=== PATIENT | female | born 1950 | race Caucasian/White ===

== ENCOUNTER 2018-03-31 18:11 | Emergency (ER) | payer MEDICARE ==
[~2018-03-31 18:11] MED LIST: HYDR12.561 PO; LISI20TA29 PO; MECL25TA9 PO; OLME40TA28 PO; ONDA-2 PO; ONDA4TAB97 PO; PROP60TA15 PO
[2018-03-31] MEDS ORDERED: LISI-374 PO (18:19)
[2018-03-31] MEDS ORDERED: POTA20TA94 PO (18:19)
[2018-03-31] MEDS ORDERED: AMLO-99 PO (18:19)
--- NOTE | 2018-03-31 18:38 | ER Report ---
History and Physical Time Seen By MD: 18:25 Hx. of Stated Complaint: pt having ruq abd pain that started abruptly 20-3- mins ago, no radiating factors, rates pain at 4-8/10, has hx of pancreatitis and states symptoms are similar to that HPI/ROS Chief Complaint: "Pancreatitis" HPI: 67-year-old patient presents with complaints of right upper quadrant pain that she attributes to her previously diagnosed pancreatitis. She states she has been managing the pancreatitis with dietary modifications. She reports having similar pain three to four times in the past and associates each episode with making poor dietary choices. She reports, if she drinks lots of water she can typically avoid progression of pain. She states the pain is currently improving. ROS: General: no fevers, chills, or night sweats HEENT: denies headache, denies sinus pressure Respiratory: denies shortness of breath, denies difficulty breathing CV: denies chest pain GI: reports right upper quadrant pain, reports epigastric pain, denies GERD, denies nausea and vomiting Allergies: Coded Allergies: aspirin (Verified Allergy, Severe, ANAPHYLAXIS , 03/31/18) NSAIDS (Non-Steroidal Anti-Inflamma (Unverified Allergy, Intermediate, SWELLING, 03/31/18) Sulfa (Sulfonamide Antibiotics) (Unverified Allergy, Unknown, 03/31/18) Home Meds Active Scripts Hydrochlorothiazide (HYDROCHLOROTHIAZIDE) 12.5 Mg Tablet, 1 TAB PO QDAY, #30 TAB 0 Refills TAKE ONE TABLET BY MOUTH EVERY DAY Prov:EMILIO GUTIÉRREZ MD 06/16/14 Reported Medications Potassium Chloride (POTASSIUM CHLORIDE) 20 Meq Tab.er.prt, 20 MEQ PO QDAY 03/31/18 Amlodipine Besylate (AMLODIPINE BESYLATE) 10 Mg Tablet, 1 TAB PO QDAY, TAB 03/31/18 Lisinopril (LISINOPRIL) 40 Mg Tablet, 40 MG PO QDAY, TAB 03/31/18 Discontinued Reported Medications Olmesartan Medoxomil (BENICAR) 40 Mg Tablet, 40 MG PO DAILY 06/16/14 Propranolol Hcl (PROPRANOLOL HCL) 60 Mg Tablet, 60 MG PO BID 06/16/14 Discontinued Scripts Ondansetron Hcl (ZOFRAN) 4 Mg Tablet, 4 MG PO Q6H Y for NAUSEA/VOMITING, #12 Prov:RAHUL WALTON DO 03/15/17 Ondansetron Hcl (ONDANSETRON HCL) 4 Mg Tablet, 4 MG PO Q8-12H for Nausea, #10 TAB TAKE 1 TABLET BY MOUTH EVERY 8-12 HOURS Prov:MATI GAYLE MD 05/26/14 Meclizine Hcl (MECLIZINE HCL) 25 Mg Tablet, 25 MG PO TID for dizziness, #30 Prov:MATI GAYLE MD 05/26/14 Lisinopril (LISINOPRIL) 20 Mg Tablet, 20 MG PO QDAY, #30 Prov:MATI GAYLE MD 05/26/14 Past Medical/Surgical History Pancreatitis 1 year ago Appendix 11 years ago Tubal ligation 25 years ago Toot fracture in 3rd grade Cataract surgery 3 years ago Hx Smoking: No Smoking Status: Never Smoker Hx Alcohol Use: No Constitutional Vital Sign - Last 24 Hours 03/31/18 03/31/18 03/31/18 03/31/18 18:11 18:15 18:19 18:26 Temp 97.7 Pulse ??? 79 77 Resp 20 B/P (MAP) 161/80 (107) 161/80 Pulse Ox 98 99 03/31/18 03/31/18 03/31/18 03/31/18 18:30 18:41 18:45 18:56 Pulse 80 77 B/P (MAP) 145/70 (95) 138/76 (96) Pulse Ox 96 96 03/31/18 03/31/18 03/31/18 03/31/18 19:00 19:11 19:15 19:20 Pulse 76 76 B/P (MAP) 148/81 (103) 151/84 (106) Pulse Ox 97 97 03/31/18 03/31/18 03/31/18 03/31/18 19:30 19:35 19:45 19:50 Pulse 77 74 B/P (MAP) 147/72 (97) 149/82 (104) Pulse Ox 97 97 03/31/18 03/31/18 20:00 20:05 Pulse 77 B/P (MAP) 148/79 (102) Pulse Ox 94 Physical Exam Physical Examination: General: 67-year-old woman in no apparent distress Neuro: cranial nerves grossly intact HEENT: normocephalic, atraumatic, TMs hema aleman BL with no effusion, mucus membranes pink and moist, no rhinorrhea Respiratory: CTA BL CV: Clear S1 S2, no murmurs GI: normoactive BS x4, right upper gastric pain on palpation, Differential Diagnoses considered: pancreatitis, cholecystitis, bile duct obstruction, GERD Medical Decision Making Data Points Result Diagram: 03/31/18 1824 03/31/18 1824 Laboratory Hematology Test 03/31/18 18:24 Red Blood Count 4.62 M/uL (4.17-5.56) Mean Corpuscular Volume 85.6 fL (80.0-96.0) Mean Corpuscular Hemoglobin 30.6 pg (26.0-33.0) Mean Corpuscular Hemoglobin Concent 35.8 g/dL (32.0-36.0) Red Cell Distribution Width 13.1 % (11.5-14.5) Mean Platelet Volume 8.1 fL (7.2-11.1) Neutrophils (%) (Auto) 43.0 % (39.4-72.5) Lymphocytes (%) (Auto) 44.4 % (17.6-49.6) Monocytes (%) (Auto) 8.8 % (4.1-12.4) Eosinophils (%) (Auto) 3.2 % (0.4-6.7) Basophils (%) (Auto) 0.6 % (0.3-1.4) Nucleated RBC Relative Count (auto) 0.1 /100WBC Neutrophils # (Auto) 4.5 K/uL (2.0-7.4) Lymphocytes # (Auto) 4.6 K/uL (1.3-3.6) Monocytes # (Auto) 0.9 K/uL (0.3-1.0) Eosinophils # (Auto) 0.3 K/uL (0.0-0.5) Basophils # (Auto) 0.1 K/uL (0.0-0.1) Nucleated RBC Absolute Count (auto) 0.01 K/uL Sodium Level 139 mmol/L (137-145) Potassium Level 3.7 mmol/L (3.5-5.0) Chloride Level 103 mmol/L (98-107) Carbon Dioxide Level 22 mmol/L (22-31) Blood Urea Nitrogen 28 mg/dl (7-18) Creatinine 1.10 mg/dl (0.52-1.04) Glomerular Filtration Rate Calc 49.5 Random Glucose 136 mg/dl (75-110) Calcium Level 10.3 mg/dl (8.4-10.2) Total Bilirubin 0.5 mg/dl (0.2-1.3) Aspartate Amino Transf (AST/SGOT) 155 U/L (0-35) Alanine Aminotransferase (ALT/SGPT) 85 U/L (0-56) Alkaline Phosphatase 111 U/L (0-126) Total Protein 7.7 gm/dl (6.3-8.2) Albumin 4.4 g/dl (3.5-5.0) Amylase Level 281 U/L (0-110) Lipase 4040 U/L (23-300) Chemistry Test 03/31/18 18:24 White Blood Count 10.4 k/uL (4.5-11.0) Red Blood Count 4.62 M/uL (4.17-5.56) Hemoglobin 14.1 g/dL (12.0-16.0) Hematocrit 39.5 % (34.0-47.0) Mean Corpuscular Volume 85.6 fL (80.0-96.0) Mean Corpuscular Hemoglobin 30.6 pg (26.0-33.0) Mean Corpuscular Hemoglobin Concent 35.8 g/dL (32.0-36.0) Red Cell Distribution Width 13.1 % (11.5-14.5) Platelet Count 357 K/uL (150-450) Mean Platelet Volume 8.1 fL (7.2-11.1) Neutrophils (%) (Auto) 43.0 % (39.4-72.5) Lymphocytes (%) (Auto) 44.4 % (17.6-49.6) Monocytes (%) (Auto) 8.8 % (4.1-12.4) Eosinophils (%) (Auto) 3.2 % (0.4-6.7) Basophils (%) (Auto) 0.6 % (0.3-1.4) Nucleated RBC Relative Count (auto) 0.1 /100WBC Neutrophils # (Auto) 4.5 K/uL (2.0-7.4) Lymphocytes # (Auto) 4.6 K/uL (1.3-3.6) Monocytes # (Auto) 0.9 K/uL (0.3-1.0) Eosinophils # (Auto) 0.3 K/uL (0.0-0.5) Basophils # (Auto) 0.1 K/uL (0.0-0.1) Nucleated RBC Absolute Count (auto) 0.01 K/uL Glomerular Filtration Rate Calc 49.5 Calcium Level 10.3 mg/dl (8.4-10.2) Total Bilirubin 0.5 mg/dl (0.2-1.3) Aspartate Amino Transf (AST/SGOT) 155 U/L (0-35) Alanine Aminotransferase (ALT/SGPT) 85 U/L (0-56) Alkaline Phosphatase 111 U/L (0-126) Total Protein 7.7 gm/dl (6.3-8.2) Albumin 4.4 g/dl (3.5-5.0) Amylase Level 281 U/L (0-110) Lipase 4040 U/L (23-300) ED Course/Re-evaluation ED Course 67-year old patient presents to the ED with right upper quadrant abdominal pain. She states that the pain is associated with her pancreatics. Examination lungs are clear, heart regular, abdomen soft nontender. Patient points to the epigastric region to indicate where the pain was. She states when she arrived her pain was an 8 out of 10 and currently it is a one out of 10. A CBC, CMP, amylase, lipase were done. Patient did have a lipase of 4040, AST and ALT were slightly elevated. We discussed findings with patient. We believe that this is likely a stone that causes a transient obstruction which results in her having pain and elevated pancreatic enzymes and then resolves. We feel that the next step should be a hiatus scan for further evaluation of the gallbladder. Since patient is afebrile and having no pain at this time we'll go ahead and discharge patient home to continue with her normal medications. Patient is follow-up with Dr. Villaseñor to discuss hiatus scan and further workup for gallstones. Patient verbalized understanding and agreement with plan. Decision to Disposition Date: Mar 31, 2018 Decision to Disposition Time: 20:16 Depart Departure Latest Vital Signs Vital Signs Date Time Temp Pulse Resp B/P (MAP) Pulse Ox O2 Delivery O2 Flow Rate FiO2 03/31/18 20:05 77 94 03/31/18 20:00 148/79 (102) 03/31/18 18:19 97.7 20 Impression: Primary Impression: Acute pancreatitis Condition: Improved Disposition: HOME OR SELF-CARE Referrals: ALBERTO POOLE (PCP) EILEEN VILLASEÑOR MD Patient Instructions: Pancreatitis (ED) Additional Instructions: Return to the ED if your condition worsens. I do have concern for possible transient biliary obstruction, with a gallstone that blocks the common bile duct and then moves out. Follow up with your primary care provider. I would encourage following up with Dr Villaseñor, general surgeon, who can order a HIDA scan and ultimately decide fi the problem is with the gallbladder. Problem Qualifiers Primary Impression: Acute pancreatitis Pancreatitis type: unspecified pancreatitis type Acute pancreatitis complication: unspecified Qualified Codes: K85.90 - Acute pancreatitis without necrosis or infection, unspecified DIMPLE CRAFT Mar 31, 2018 18:38
[2018-03-31 19:03] LABS: PLATELET COUNT, AUTOMATED 357 K/uL (150-450)
[2018-03-31 20:00] VITALS: BP 148/79
== END 2018-03-31 20:25 | disposition home or self-care (01) ==
LOC: ER 18:48
DX: K85.90 Acute pancreatitis without necrosis or infection, unspecified (principal)
CPT/HCPCS: 82040; 82150; 82247; 82310; 82374; 82435; 82565; 82947; 83690; 84075; 84132; 84155; 84295; 84450; 84460; 84520; 85025; 99282

== ENCOUNTER → 2018-04-14 | Outpatient (CLI) | payer MEDICARE ==
[~2018-04-14] MED LIST changes: +AMLO-99 PO; +LISI-374 PO; +POTA20TA94 PO
--- NOTE | 2018-04-14 11:45 | RADIOLOGY IMAGING REPORT ---
FACILITY: [facility] PATIENT NAME: Saundra Oneal : 1950 MR: [id number] V: [id number] EXAM DATE: ORDERING PHYSICIAN: ALBERTO POOLE TECHNOLOGIST: Location: [facility] - [place] Patient: Saundra Oneal : 1950 Visit/Account:[id number] Date of Sevice: 04/14/2018 CT ABDOMEN WITHOUT CONTRAST CLINICAL INFORMATION: Pancreatitis TECHNIQUE: Axial CT images were obtained through the abdomen without administration of IV contrast. Reformatted coronal and sagittal images were also obtained. Dose Lowering Technique One of the following dose optimization techniques was utilized in the performance of this exam: Autom ated exposure control; adjustment of the mA and/or kV according to the patient's size; or use of an i terative reconstruction technique. Specific details can be referenced in the facility's radiology C T exam operational policy. COMPARISON: March 15, 2017 FINDINGS: Lower lung morgan: Limited views lower lung field are unremarkable. Evaluation of the solid organs of the abdomen is limited without IV contrast. Liver: Unremarkable Biliary: Cholelithiasis although no evidence of biliary ductal dilatation Pancreas: Pancreas appears unremarkable with no evidence of peripancreatic inflammation, pseudocyst o r focal mass Spleen: Normal appearance. Adrenal glands: Unremarkable. Kidneys / retroperitoneum: No evidence of nephrolithiasis or hydronephrosis Bowel / peritoneum / mesenteries: There is a surgical clip adjacent to the cecum likely related to pr ior appendectomy Lymph node assessment: There are several small mesenteric lymph nodes the right lower quadrant Vessels: Atherosclerotic calcification seen throughout a nonaneurysmal abdominal aorta and branches. Musculoskeletal / Body wall: Spondylotic changes of the thoracal lumbar spine. No aggressive appeari ng bone lesions are seen IMPRESSION: 1. No acute intra-abdominal abnormality. The pancreas appears unremarkable Report Dictated By: Yamile Roberson MD at 04/14/2018 11:34 AM Report E-Signed By: Yamile Roberson MD at 04/14/2018 11:40 AM WSN:[email or web address]
== END ==
LOC: CT 01:28
PROVIDERS: ATTEND Nurse Practitioner Psychiatric/Mental Health
DX: K80.20 Calculus of gallbladder without cholecystitis without obstruction (principal); I25.10 Atherosclerotic heart disease of native coronary artery without angina pectoris
CPT/HCPCS: 74150

== ENCOUNTER → 2018-07-24 | Outpatient (CLI) | payer MEDICARE ==
[~2018-07-24] MED LIST changes: +AMLO-113 PO; -AMLO-99 PO
--- NOTE | 2018-07-27 09:03 | RADIOLOGY IMAGING REPORT ---
[place] [facility] [place] NAME: DARSHANA SCHULZ : [id number] MR: [id number] V: [id number] EXAM DATE: [id number] ORDERING PHYSICIAN: ALBERTO POOLE TECHNOLOGIST: Paola Peñaloza PROCEDURE:BILATERAL DIGITAL SCREENING MAMMOGRAM WITH CAD ASSISTED INTERPRETATION & 3D TOMOSYNTHESIS COMPARISON:Prior mammogram 08/30/2011 INDICATIONS:Asymptomatic TISSUE DENSITY:Is predominantly fatty tissue. VIEWS OBTAINED:Bilateral 2D full field CC and MLO and corresponding Tomography. FINDINGS: There is no mammographic finding suspicious for malignancy, and no significant change compared to prior mammogram. DIAGNOSTIC CATEGORY 1--NEGATIVE. RECOMMENDATIONS: ROUTINE MAMMOGRAM AND CLINICAL EVALUATION. IMPRESSION: BIRADS 1: Negative. Dictated by: Rossi Vu M.D. on 07/24/2018 at 16:39 Transcribed by: DEWAYNE on 07/27/2018 at 8:17 Approved by: Yamile Roberson M.D. on 07/27/2018 at 9:02 [facility]
== END ==
LOC: MAMO 04:09
PROVIDERS: ATTEND Nurse Practitioner Psychiatric/Mental Health
DX: Z12.31 Encounter for screening mammogram for malignant neoplasm of breast (principal)
CPT/HCPCS: 77063; 77067

== ENCOUNTER 2018-08-24 12:54 | Emergency (ER) | payer MEDICARE ==
--- NOTE | 2018-08-24 13:00 | ER Report ---
History and Physical Time Seen By MD: 13:00 HPI/ROS CHIEF COMPLAINT: Nausea, shortness of breath HISTORY OF PRESENT ILLNESS: 68-year-old female patient presents to the emergency room with complaint of nausea, shortness of breath. Patient states she has not felt well all weekend. She states she felt that her blood pressures were high. She states that today she became very lightheaded, shortness of breath and had nausea. Patient came in here for further evaluation. She states that she has not had any fevers or chills, nausea, vomiting or diarrhea. She is not taking any medication for this. She states she became concerned when everything became significantly worse within the last half hour. REVIEW OF SYSTEMS: Respiratory: As noted above. Cardiovascular: No chest pain, no palpitations. Gastrointestinal: As noted above. Musculoskeletal: No back pain. Allergies: Coded Allergies: aspirin (Verified Allergy, Severe, ANAPHYLAXIS , 03/31/18) NSAIDS (Non-Steroidal Anti-Inflamma (Unverified Allergy, Intermediate, SWELLING, 03/31/18) Sulfa (Sulfonamide Antibiotics) (Unverified Allergy, Unknown, 03/31/18) Home Meds Active Scripts Cephalexin 500 Mg Tab (KEFLEX 500 MG TAB) 500 Mg Tablet, 500 MG PO BID, #14 TAB Prov:DIMPLE CRAFT 08/24/18 Hydrochlorothiazide (HYDROCHLOROTHIAZIDE) 12.5 Mg Tablet, 1 TAB PO QDAY, #30 TAB 0 Refills TAKE ONE TABLET BY MOUTH EVERY DAY Prov:EMILIO GUTIÉRREZ MD 06/16/14 Reported Medications Potassium Chloride (POTASSIUM CHLORIDE) 20 Meq Tab.er.prt, 20 MEQ PO QDAY 03/31/18 Amlodipine Besylate (AMLODIPINE BESYLATE) 10 Mg Tablet, 1 TAB PO QDAY, TAB 03/31/18 Lisinopril (LISINOPRIL) 40 Mg Tablet, 40 MG PO QDAY, TAB 03/31/18 Past Medical/Surgical History Patient has a past medical history of migraines, hypertension, pancreatitis. Patient has a surgical history of appendectomy, cataract surgery 2. Patient has a family medical history of cancer, CAD. Reviewed Nurses Notes: Yes Hx Smoking: No Smoking Status: Never Smoker Hx Alcohol Use: No Constitutional Vital Sign - Last 24 Hours 08/24/18 08/24/18 08/24/18 08/24/18 13:00 13:25 13:30 14:30 Temp 97.6 Pulse 79 65 75 67 70 71 Resp 20 23 10 B/P (MAP) 119/70 95/60 (72) 107/67 (80) 94/54 (67) 90/55 (67) Pulse Ox 93 95 97 93 O2 Delivery Room Air Room Air 08/24/18 08/24/18 08/24/18 08/24/18 14:57 15:00 15:05 15:30 Pulse 65 71 Resp 19 14 B/P (MAP) 111/90 (97) 125/65 (85) 113/60 (77) Physical Exam General Appearance: The patient is alert, has no immediate need for airway pr otection and no current signs of toxicity. Respiratory: Chest is non tender, lungs are clear to auscultation. Cardiac: regular rate and rhythm Gastrointestinal: Abdomen is soft and non tender, no masses, bowel sounds normal. Musculoskeletal: Neck: Neck is supple and non tender. Extremities have full range of motion and are non tender. Skin: No rashes or lesions. DIFFERENTIAL DIAGNOSIS: After history and physical exam differential diagnosis was considered for shortness of breath including but not limited to pulmonary infectious process, COPD, asthma, pulmonary embolus and congestive heart failure. Medical Decision Making Data Points Result Diagram: 08/24/18 1305 08/24/18 1305 Laboratory Hematology Test 08/24/18 13:05 08/24/18 14:52 Red Blood Count 4.83 M/uL (4.17-5.56) Mean Corpuscular Volume 87.2 fL (80.0-96.0) Mean Corpuscular Hemoglobin 29.5 pg (26.0-33.0) Mean Corpuscular Hemoglobin Concent 33.9 g/dL (32.0-36.0) Red Cell Distribution Width 13.6 % (11.5-14.5) Mean Platelet Volume 7.8 fL (7.2-11.1) Neutrophils (%) (Auto) 47.4 % (39.4-72.5) Lymphocytes (%) (Auto) 40.3 % (17.6-49.6) Monocytes (%) (Auto) 8.5 % (4.1-12.4) Eosinophils (%) (Auto) 2.6 % (0.4-6.7) Basophils (%) (Auto) 1.2 % (0.3-1.4) Nucleated RBC Relative Count (auto) 0.0 /100WBC Neutrophils # (Auto) 4.1 K/uL (2.0-7.4) Lymphocytes # (Auto) 3.4 K/uL (1.3-3.6) Monocytes # (Auto) 0.7 K/uL (0.3-1.0) Eosinophils # (Auto) 0.2 K/uL (0.0-0.5) Basophils # (Auto) 0.1 K/uL (0.0-0.1) Nucleated RBC Absolute Count (auto) 0.00 K/uL Sodium Level 138 mmol/L (137-145) Potassium Level 3.7 mmol/L (3.5-5.0) Chloride Level 104 mmol/L (98-107) Carbon Dioxide Level 23 mmol/L (22-31) Blood Urea Nitrogen 21 mg/dl (7-18) Creatinine 1.10 mg/dl (0.52-1.04) Glomerular Filtration Rate Calc 49.4 Random Glucose 142 mg/dl (75-110) Calcium Level 10.4 mg/dl (8.4-10.2) Total Bilirubin 0.7 mg/dl (0.2-1.3) Aspartate Amino Transf (AST/SGOT) 24 U/L (0-35) Alanine Aminotransferase (ALT/SGPT) 30 U/L (0-56) Alkaline Phosphatase 91 U/L (0-126) Troponin I < 0.012 ng/ml B-Type Natriuretic Peptide < 5 pg/ml (0-100) Total Protein 8.3 g/dl (6.3-8.2) Albumin 4.6 g/dl (3.5-5.0) Urine Color Yellow Urine Clarity Slightly-cloudy Urine pH 5.0 pH (4.8-9.5) Urine Specific [place] 1.013 Urine Protein 30 mg/dL (NEGATIVE) Urine Glucose (UA) Negative mg/dL (NEGATIVE) Urine Ketones Negative mg/dL (NEGATIVE) Urine Blood Negative (NEGATIVE) Urine Nitrite Negative (NEGATIVE) Urine Bilirubin Negative (NEGATIVE) Urine Urobilinogen Negative mg/dL (0.2-1.9) Urine Leukocyte Esterase Large (NEGATIVE) Urine RBC 4 /HPF (0-2/HPF) Urine WBC 10 /HPF (0-5/HPF) Urine Squamous Epithelial Cells Many /LPF (</=FEW) Urine Bacteria Negative /HPF (NONE-FEW) Urine Hyaline Casts Many /LPF (NONE-FEW) Urine Mucus Few /HPF (NONE-FEW) Chemistry Test 08/24/18 13:05 08/24/18 14:52 White Blood Count 8.6 k/uL (4.5-11.0) Red Blood Count 4.83 M/uL (4.17-5.56) Hemoglobin 14.3 g/dL (12.0-16.0) Hematocrit 42.1 % (34.0-47.0) Mean Corpuscular Volume 87.2 fL (80.0-96.0) Mean Corpuscular Hemoglobin 29.5 pg (26.0-33.0) Mean Corpuscular Hemoglobin Concent 33.9 g/dL (32.0-36.0) Red Cell Distribution Width 13.6 % (11.5-14.5) Platelet Count 412 K/uL (150-450) Mean Platelet Volume 7.8 fL (7.2-11.1) Neutrophils (%) (Auto) 47.4 % (39.4-72.5) Lymphocytes (%) (Auto) 40.3 % (17.6-49.6) Monocytes (%) (Auto) 8.5 % (4.1-12.4) Eosinophils (%) (Auto) 2.6 % (0.4-6.7) Basophils (%) (Auto) 1.2 % (0.3-1.4) Nucleated RBC Relative Count (auto) 0.0 /100WBC Neutrophils # (Auto) 4.1 K/uL (2.0-7.4) Lymphocytes # (Auto) 3.4 K/uL (1.3-3.6) Monocytes # (Auto) 0.7 K/uL (0.3-1.0) Eosinophils # (Auto) 0.2 K/uL (0.0-0.5) Basophils # (Auto) 0.1 K/uL (0.0-0.1) Nucleated RBC Absolute Count (auto) 0.00 K/uL Glomerular Filtration Rate Calc 49.4 Calcium Level 10.4 mg/dl (8.4-10.2) Total Bilirubin 0.7 mg/dl (0.2-1.3) Aspartate Amino Transf (AST/SGOT) 24 U/L (0-35) Alanine Aminotransferase (ALT/SGPT) 30 U/L (0-56) Alkaline Phosphatase 91 U/L (0-126) Troponin I < 0.012 ng/ml B-Type Natriuretic Peptide < 5 pg/ml (0-100) Total Protein 8.3 g/dl (6.3-8.2) Albumin 4.6 g/dl (3.5-5.0) Urine Color Yellow Urine Clarity Slightly-cloudy Urine pH 5.0 pH (4.8-9.5) Urine Specific [place] 1.013 Urine Protein 30 mg/dL (NEGATIVE) Urine Glucose (UA) Negative mg/dL (NEGATIVE) Urine Ketones Negative mg/dL (NEGATIVE) Urine Blood Negative (NEGATIVE) Urine Nitrite Negative (NEGATIVE) Urine Bilirubin Negative (NEGATIVE) Urine Urobilinogen Negative mg/dL (0.2-1.9) Urine Leukocyte Esterase Large (NEGATIVE) Urine RBC 4 /HPF (0-2/HPF) Urine WBC 10 /HPF (0-5/HPF) Urine Squamous Epithelial Cells Many /LPF (</=FEW) Urine Bacteria Negative /HPF (NONE-FEW) Urine Hyaline Casts Many /LPF (NONE-FEW) Urine Mucus Few /HPF (NONE-FEW) Urinalysis Test 08/24/18 14:52 Urine Color Yellow Urine Clarity Slightly-cloudy Urine pH 5.0 pH (4.8-9.5) Urine Specific [place] 1.013 Urine Protein 30 mg/dL (NEGATIVE) Urine Glucose (UA) Negative mg/dL (NEGATIVE) Urine Ketones Negative mg/dL (NEGATIVE) Urine Blood Negative (NEGATIVE) Urine Nitrite Negative (NEGATIVE) Urine Bilirubin Negative (NEGATIVE) Urine Urobilinogen Negative mg/dL (0.2-1.9) Urine Leukocyte Esterase Large (NEGATIVE) Urine RBC 4 /HPF (0-2/HPF) Urine WBC 10 /HPF (0-5/HPF) Urine Squamous Epithelial Cells Many /LPF (</=FEW) Urine Bacteria Negative /HPF (NONE-FEW) Urine Hyaline Casts Many /LPF (NONE-FEW) Urine Mucus Few /HPF (NONE-FEW) EKG/Imaging EKG Interpretation 12 lead EKG: Rhythm: normal sinus rhythm with ventricular rate of 68 bpm [place]: normal QRS: normal ST segments: normal Imaging CHEST PA AND LAT HISTORY: Low blood pressure. COMPARISON: 03/15/2017. FINDINGS: Lines/tubes: None. Lungs/pleura: Negative. Heart: Negative. Mediastinum: Negative. Bony structures/body wall: Degenerative changes in the spine. No acute osseous findings. IMPRESSION: No acute cardiopulmonary process. Report Dictated By: Jaden Fernandez MD at 08/24/2018 2:48 PM Report E-Signed By: Jaden Fernandez MD at 08/24/2018 2:49 PM ED Course/Re-evaluation ED Course Patient was admitted to an exam room, history of physical were obtained. Differential diagnoses were considered. On examination lungs are clear, heart is regular, abdomen is soft and nontender. A CBC, CMP, troponin, EKG, chest x-ray were done. Lab results were unremarkable, patient did have a slightly low GFR which is consistent for her. No elevated white count. An IV was started and patient received 500 cc of normal saline. She had improvement after that. A urinalysis was obtained and patient did have a large leukocyte esterase with 10 white blood cells per high-power field. I discussed findings with patient. We will go ahead and treat her for urinary tract infection. I believe that she is l ikely dehydrated which is an underlying cause. However we will have her follow- up with primary care provider in the next week. Patient will be started on Keflex 500 mg twice a day. Patient verbalized understanding and agreement with plan. Decision to Disposition Date: Aug 24, 2018 Decision to Disposition Time: 15:30 Depart Departure Latest Vital Signs Vital Signs Date Time Temp Pulse Resp B/P (MAP) Pulse Ox O2 Delivery O2 Flow Rate FiO2 08/24/18 15:30 113/60 (77) 08/24/18 15:05 71 14 08/24/18 14:30 93 08/24/18 13:25 Room Air 08/24/18 13:00 97.6 Impression: Primary Impression: UTI (urinary tract infection) Additional Impression: Dehydration Condition: Improved Disposition: HOME OR SELF-CARE Referrals: ALBERTO POOLE (PCP) New Scripts Cephalexin 500 Mg Tab (KEFLEX 500 MG TAB) 500 Mg Tablet 500 MG PO BID, #14 TAB Prov: DIMPLE CRAFT 08/24/18 Patient Instructions: Urinary Tract Infection in Women (ED) Additional Instructions: Increase fluid intake. Get plenty of rest. Follow up with your primary care provider. We will call with the results of the urine culture if we need to change your antibiotics. Problem Qualifiers Primary Impression: UTI (urinary tract infection) Urinary tract infection type: acute cystitis Hematuria presence: without hematuria Qualified Codes: N30.00 - Acute cystitis without hematuria DIMPLE CRAFT Aug 24, 2018 13:00
[2018-08-24] MEDS ORDERED: ONDANSETRON 4 MG/2 ML VIAL IVP ONE (13:10)
[2018-08-24 13:16] LABS: PLATELET COUNT, AUTOMATED 412 K/uL (150-450)
--- NOTE | 2018-08-24 13:26 | EKG ---
FACILITY: [facility] - [place] PATIENT NAME: DARSHANA SCHULZ : [id number] MR: [id number] V: [id number] EXAM DATE: ORDERING PHYSICIAN: DIMPLE CRAFT TECHNOLOGIST: Test Reason : sob Blood Pressure : / mmHG Vent. Rate : 068 BPM Atrial Rate : 068 BPM P-R Int : 158 ms QRS Dur : 078 ms QT Int : 430 ms P-R-T Axes : 047 043 063 degrees QTc Int : 457 ms Normal sinus rhythm Possible Left atrial enlargement No ST-T abnormalities When compared with ECG of 15-MAR-2017 18:22, No significant change was found Confirmed by ALYSHA MORALES ([id number]) on 08/24/2018 9:53:15 PM Referred By: Confirmed By:ALYSHA MORALES
[2018-08-24] MEDS ORDERED: NS(*) 0.9% 500 ML BAG 500 ML IV ONE (13:40)
--- NOTE | 2018-08-24 14:53 | RADIOLOGY IMAGING REPORT ---
FACILITY: [facility] - [place] PATIENT NAME: Saundra Oneal : 1950 MR: [id number] V: [id number] EXAM DATE: ORDERING PHYSICIAN: DIMPLE CRAFT TECHNOLOGIST: Location: [facility] Patient: Saundra Oneal : 1950 Visit/Account:[id number] Date of Sevice: 08/24/2018 CHEST PA AND LAT HISTORY: Low blood pressure. COMPARISON: 03/15/2017. FINDINGS: Lines/tubes: None. Lungs/pleura: Negative. Heart: Negative. Mediastinum: Negative. Bony structures/body wall: Degenerative changes in the spine. No acute osseous findings. IMPRESSION: No acute cardiopulmonary process. Report Dictated By: Jaden Fernandez MD at 08/24/2018 2:48 PM Report E-Signed By: Jaden Fernandez MD at 08/24/2018 2:49 PM WSN:[email or web address]
[2018-08-24 15:30] VITALS: BP 113/60
[2018-08-24] MEDS ORDERED: CEPH500T7 PO (15:30)
== END 2018-08-24 15:43 | disposition home or self-care (01) ==
LOC: ER 13:11
DX: N30.00 Acute cystitis without hematuria (principal); E86.0 Dehydration
CPT/HCPCS: 71046; 81001; 83880; 84484; 85025; 87088; 93005; 96361; 96374; 99284; J2405; J7040; 82040; 82247; 82310; 82374; 82435; 82565; 82947; 84075; 84132; 84155; 84295; 84450; 84460; 84520

== ENCOUNTER → 2019-01-08 | Outpatient (REF) | payer MEDICARE ==
[~2019-01-08] MED LIST changes: -AMLO-113 PO; +AMLO-127 PO; +CEPH500T7 PO
[2019-01-08 15:32] LABS: PLATELET COUNT, AUTOMATED 383 K/uL (150-450)
== END ==
PROVIDERS: ATTEND Nurse Practitioner Family
DX: R10.9 Unspecified abdominal pain (principal)
CPT/HCPCS: 82040; 82150; 82247; 82310; 82374; 82435; 82565; 82947; 83690; 84075; 84132; 84155; 84295; 84450; 84460; 84520; 85025

== ENCOUNTER 2019-04-18 10:42 | Emergency (ER) | payer MEDICARE ==
--- NOTE | 2019-04-18 10:48 | ER Report ---
History and Physical Time Seen By MD: 10:46 HPI/ROS CHIEF COMPLAINT: Bilateral ankle pain HISTORY OF PRESENT ILLNESS: Patient is a 68-year-old female here with complaints of bilateral ankle pain after rolling her ankles after missing a step. Patient arrived via ambulance due to inability to bear weight. She is neurovascularly intact in the distal extremity at time of arrival. Patient did receive fentanyl 50 g prior to arrival. Denies other injury at this time. Capillary refill less than 3 seconds REVIEW OF SYSTEMS: Constitutional: No fever, no chills. Musculoskeletal: Bilateral lateral malleolus pain Skin: No rashes. Neurological: Neurovascular exam intact in the distal extremity. Allergies: Coded Allergies: aspirin (Verified Allergy, Severe, ANAPHYLAXIS , 03/31/18) NSAIDS (Non-Steroidal Anti-Inflamma (Unverified Allergy, Intermediate, SWELLING, 03/31/18) Sulfa (Sulfonamide Antibiotics) (Unverified Allergy, Unknown, 03/31/18) Home Meds Reported Medications Potassium Chloride (POTASSIUM CHLORIDE) 20 Meq Tab.er.prt, 20 MEQ PO QDAY 03/31/18 Amlodipine Besylate (AMLODIPINE BESYLATE) 10 Mg Tablet, 1 TAB PO QDAY, TAB 03/31/18 Lisinopril (LISINOPRIL) 40 Mg Tablet, 40 MG PO QDAY, TAB 03/31/18 Discontinued Scripts Cephalexin 500 Mg Tab (KEFLEX 500 MG TAB) 500 Mg Tablet, 500 MG PO BID, #14 TAB Prov:[employer]SULT[employer] 08/24/18 Hydrochlorothiazide (HYDROCHLOROTHIAZIDE) 12.5 Mg Tablet, 1 TAB PO QDAY, #30 TAB 0 Refills TAKE ONE TABLET BY MOUTH EVERY DAY Prov:EMILIO GUTIÉRREZ MD 06/16/14 Hx Smoking: No Smoking Status: Never Smoker Hx Alcohol Use: No Constitutional Vital Sign - Last 24 Hours 04/18/19 10:48 Temp 98.2 Pulse 70 Resp 20 B/P (MAP) 143/79 Pulse Ox 97 O2 Delivery Room Air Physical Exam General Appearance: The patient is alert, has no immediate need for airway protection and no signs of toxicity. Uncomfortable appearing Neurological: Neurovascular exam intact Skin: Warm and dry, no rashes. Musculoskeletal: Bilateral lateral malleolus pain DIFFERENTIAL DIAGNOSIS: After history and physical exam differential diagnosis was considered for fracture, contusion, sprain Medical Decision Making EKG/Imaging Imaging PATIENT NAME: Saundra Oneal : 1950 MR: [id number] V: [id number] EXAM DATE: ORDERING PHYSICIAN: ELIAS DAVIS TECHNOLOGIST: Location: [facility] Patient: Saundra Oneal : 1950 Visit/Account:[id number] Date of Sevice: 04/18/2019 ANKLE 3 VIEW MIN LEFT, ANKLE 3 VIEW MIN RIGHT HISTORY: b/ ankle pain COMPARISON: None. FINDINGS: 3 views right ankle are submitted. Distal tibia and fibula appear intact. Mortise is symmetric. Talar dome is unremarkable. No fracture or acute destructive osseous finding. The lateral view demonstrates a fracture involving the base of the fifth metatarsal bone. Further evaluation could be obtained with dedicated imaging of the foot. Views left ankle are submitted. Distal tibia and fibula are intact. Mortise appears symmetric. Talar dome is unremarkable. No fracture or destructive osseous process. Mild enthesopathy involving the insertion Achilles tendon. IMPRESSION: 1. No acute bony finding involving the right ankle. On the lateral view, there is a nondisplaced fracture at the base of the fifth metatarsal bone. Further evaluation if needed could be performed with radiographs of the foot. 2. No acute osseous finding involving the left ankle. Report Dictated By: Watson Rodriguez MD at 04/18/2019 11:29 AM FACILITY: [facility] [place] PATIENT NAME: Saundra Oneal : 1950 MR: [id number] V: [id number] EXAM DATE: ORDERING PHYSICIAN: ELIAS DAVIS TECHNOLOGIST: Location: [facility] Patient: Saundra Oneal : 1950 Visit/Account:[id number] Date of Sevice: 04/18/2019 ANKLE 3 VIEW MIN LEFT, ANKLE 3 VIEW MIN RIGHT HISTORY: b/ ankle pain COMPARISON: None. FINDINGS: 3 views right ankle are submitted. Distal tibia and fibula appear intact. Mortise is symmetric. Talar dome is unremarkable. No fracture or acute destructive osseous finding. The lateral view demonstrates a fracture involving the base of the fifth metatarsal bone. Further evaluation could be obtained with dedicated imaging of the foot. Views left ankle are submitted. Distal tibia and fibula are intact. Mortise appears symmetric. Talar dome is unremarkable. No fracture or destructive osseous process. Mild enthesopathy involving the insertion Achilles tendon. IMPRESSION: 1. No acute bony finding involving the right ankle. On the lateral view, there is a nondisplaced fracture at the base of the fifth metatarsal bone. Further evaluation if needed could be performed with radiographs of the foot. 2. No acute osseous finding involving the left ankle. ED Course/Re-evaluation ED Course Patient is a 68-year-old female here with complaints of bilateral ankle pain after missing a step enrolling her ankles. X-ray imaging identified a fractured base of the 5th metatarsal on the right foot. Patient does have a cane at home and was recommended to take Tylenol, aspirin, apply ice as needed. She was given a right foot boot for comfort. Patient declined prescription for tramadol. Recommend one week follow-up with the [facility]. Patient was ne urovascularly intact at time of discharge. Decision to Disposition Date: Apr 18, 2019 Decision to Disposition Time: 12:00 Depart Departure Latest Vital Signs Vital Signs Date Time Temp Pulse Resp B/P (MAP) Pulse Ox O2 Delivery O2 Flow Rate FiO2 04/18/19 10:48 98.2 70 20 143/79 97 Room Air Impression: Primary Impression: Fracture of 5th metatarsal Additional Impressions: SPRAIN OF UNSPECIFIED LIGAMENT OF LEFT ANKLE, INIT ENCNTR SPRAIN OF UNSPECIFIED LIGAMENT OF RIGHT ANKLE, INIT ENCNTR Condition: Improved Disposition: HOME OR SELF-CARE Referrals: ALBERTO POOLE (PCP) Patient Instructions: Foot Fracture in Adults (ED) Additional Instructions: You were identified to have a fracture of the base of the 5th metatarsal of the right foot. You likely also have bilateral sprained ankles. Please use your cane as needed for support, please follow-up with orthopedics at the [facility] [address] in the next week for follow-up evaluation of your fracture. You may take ibuprofen, naproxen as needed for primary pain control. Please return promptly if you develop numbness, worsening pain, redness, rash. Problem Qualifiers ELAIS DAVIS DO Apr 18, 2019 10:48
[2019-04-18] MEDS ORDERED: oxyCODON/ACET (*)5/325MG (CII) 1 TAB TAB PO ONE (10:55)
--- NOTE | 2019-04-18 11:37 | RADIOLOGY IMAGING REPORT ---
FACILITY: [facility] PATIENT NAME: Saundra Oneal : 1950 MR: [id number] V: [id number] EXAM DATE: ORDERING PHYSICIAN: ELIAS DAVIS TECHNOLOGIST: Location: [facility] Patient: Saundra Oneal : 1950 Visit/Account:[id number] Date of Sevice: 04/18/2019 ANKLE 3 VIEW MIN LEFT, ANKLE 3 VIEW MIN RIGHT HISTORY: b/ ankle pain COMPARISON: None. FINDINGS: 3 views right ankle are submitted. Distal tibia and fibula appear intact. Mortise is symmetric. Talar dome is unremarkable. No fracture or acute destructive osseous finding. The lateral view demonstrate s a fracture involving the base of the fifth metatarsal bone. Further evaluation could be obtained wi dedicated imaging of the foot. Views left ankle are submitted. Distal tibia and fibula are intact. Mortise appears symmetric. Talar dome is unremarkable. No fracture or destructive osseous process. Mild enthesopathy involving the ins ertion Achilles tendon. IMPRESSION: 1. No acute bony finding involving the right ankle. On the lateral view, there is a nondisplaced frac ture at the base of the fifth metatarsal bone. Further evaluation if needed could be performed with r adiographs of the foot. 2. No acute osseous finding involving the left ankle. Report Dictated By: Watson Rodriguez MD at 04/18/2019 11:29 AM Report E-Signed By: Watson Rodriguez MD at 04/18/2019 11:32 AM WSN:[id number]
--- NOTE | 2019-04-18 11:38 | RADIOLOGY IMAGING REPORT ---
FACILITY: [facility] PATIENT NAME: Saundra Oneal : 1950 MR: [id number] V: [id number] EXAM DATE: ORDERING PHYSICIAN: ELIAS DAVIS TECHNOLOGIST: Location: [facility] [place] Patient: Saundra Oneal : 1950 Visit/Account:[id number] Date of Sevice: 04/18/2019 ANKLE 3 VIEW MIN LEFT, ANKLE 3 VIEW MIN RIGHT HISTORY: b/ ankle pain COMPARISON: None. FINDINGS: 3 views right ankle are submitted. Distal tibia and fibula appear intact. Mortise is symmetric. Talar dome is unremarkable. No fracture or acute destructive osseous finding. The lateral view demonstrate s a fracture involving the base of the fifth metatarsal bone. Further evaluation could be obtained wi dedicated imaging of the foot. Views left ankle are submitted. Distal tibia and fibula are intact. Mortise appears symmetric. Talar dome is unremarkable. No fracture or destructive osseous process. Mild enthesopathy involving the ins ertion Achilles tendon. IMPRESSION: 1. No acute bony finding involving the right ankle. On the lateral view, there is a nondisplaced frac ture at the base of the fifth metatarsal bone. Further evaluation if needed could be performed with r adiographs of the foot. 2. No acute osseous finding involving the left ankle. Report Dictated By: Watson Rodriguez MD at 04/18/2019 11:29 AM Report E-Signed By: Watson Rodriguez MD at 04/18/2019 11:32 AM WSN:[id number]
[2019-04-18 11:50] VITALS: BP 125/75
== END 2019-04-18 12:05 | disposition home or self-care (01) ==
LOC: ER 10:49
DX: S92.351A Displaced fracture of fifth metatarsal bone, right foot, initial encounter for closed fracture (principal)
CPT/HCPCS: 99284

== ENCOUNTER → 2019-04-18 | Outpatient (CLI) | payer MEDICARE | LOC: AMB 10:22 | PROVIDERS: ATTEND Nurse Practitioner | DX: M25.572 Pain in left ankle and joints of left foot (principal); M25.571 Pain in right ankle and joints of right foot; W10.9XXA Fall (on) (from) unspecified stairs and steps, initial encounter | CPT/HCPCS: A0425; A0427 ==